=== PATIENT | male | born 1965 | race Caucasian/White ===

== ENCOUNTER → 2022-03-05 | Outpatient (CLI) | payer MEDICARE, OTHER | LOC: M PAIN 09:00 | PROVIDERS: ATTEND Nurse Practitioner Family | DX: G89.29 Other chronic pain (principal); M54.50 Low back pain, unspecified; E78.5 Hyperlipidemia, unspecified; I10 Essential (primary) hypertension; E66.01 Morbid (severe) obesity due to excess calories; Z68.41 Body mass index [BMI] 40.0-44.9, adult; F17.210 Nicotine dependence, cigarettes, uncomplicated; Z79.82 Long term (current) use of aspirin; Z79.891 Long term (current) use of opiate analgesic; Z79.899 Other long term (current) drug therapy; J30.2 Other seasonal allergic rhinitis ==

== ENCOUNTER 2024-06-15 09:00 | Day surgery (SDC) | payer MEDICARE ==
[~2024-06-15] VITALS: Ht 188 cm; Wt 121.1 kg
[~2024-06-15 09:00] MED LIST: ACETAMINOPHEN 1000MG 100ML IV BAG As Ordered ONE; ATOR40TA75 PO; BAYE81TA10 PO; BUSP10TA PO; DULO1CAP4 PO; HYDR-3490 PO; LEXA1TAB PO; LIDOCAINE 2% 100MG/5ML SDV (FOR ANES.) As Ordered ONE; LORA1TAB23 PO; LOSA100T46 PO; MIDAZOLAM INJ 2MG/2ML VIAL As Ordered ONE; SFHIBU200 PO; TERB250T91 PO; TRAZ-257 PO; fentaNYL 100 MCG/2 ML INJECTION As Ordered ONE; propofoL 200 MG/20 ML VIAL As Ordered ONE
[2024-06-15] MEDS: ceFAZolin 1GM VIAL As Ordered ONE (09:59)
[2024-06-15] MEDS: ceFAZolin 2 GM/D5W 50 ML IV BAG As Ordered ONE (09:59)
[2024-06-15] MEDS ORDERED: KETOROLAC 60MG 2ML VIAL As Ordered ONE (10:03)
[2024-06-15] MEDS ORDERED: ONDANSETRON 4MG 2ML VIAL As Ordered ONE (10:03)
[2024-06-15] MEDS: LIDOCAINE 1% SDV 30ML VIAL As Ordered ONE (10:08)
[2024-06-15] MEDS ORDERED: ceFAZolin SOD 2 GM in IV 1 EA IV ONE (10:20)
[2024-06-15] MEDS ORDERED: ceFAZolin SOD 1 GM in D5W MINI-BAG PLUS 50 ML IV ONE (10:20)
[2024-06-15] MEDS: BACITRACIN OINTMENT 30GM TUBE As Ordered ONE (10:22)
[2024-06-15] MEDS ORDERED: ONDANSETRON 4MG 2ML VIAL IV PRN (10:30)
[2024-06-15] MEDS ORDERED: HYDROMORPHONE HCL 0.5 MG/ 0.5 ML SYRINGE IV PRN (10:30)
[2024-06-15] MEDS ORDERED: oxyCODONE 5MG TAB PO PRN (10:30)
[2024-06-15] MEDS ORDERED: fentaNYL 100 MCG/2 ML INJECTION IV PRN (10:30)
[2024-06-15] MEDS ORDERED: HYDR-3713 PO (10:34)
[2024-06-15] MEDS ORDERED: CEPH500C PO (10:34)
[2024-06-15] MEDS: LR 1,000 ML IV SCH (10:54)
[2024-06-15 11:30] VITALS: BP 160/77; TEMP 97; O2SAT 98
== END 2024-06-15 11:34 | disposition home or self-care (01) ==
LOC: M SDC 09:00
PROVIDERS: ATTEND Urology
DX: N50.3 Cyst of epididymis (principal); I10 Essential (primary) hypertension; E78.00 Pure hypercholesterolemia, unspecified; Z79.899 Other long term (current) drug therapy; Z79.82 Long term (current) use of aspirin; F41.9 Anxiety disorder, unspecified; F32.A Depression, unspecified; F17.210 Nicotine dependence, cigarettes, uncomplicated
CPT/HCPCS: 54640; 54830; 88302; J0665; J0690; J1100; J1885; J2250; J2405; J3010